=== PATIENT | male | born 1995 | race Caucasian/White ===

== ENCOUNTER → 2018-11-07 | Outpatient (CLI) | payer OTHER ==
--- NOTE | 2018-11-07 17:10 | MR ---
EXAMINATION TYPE: MR knee LT wo con DATE OF EXAM: 11/07/2018 COMPARISON: None HISTORY: Lt knee pain/injury Jul 2018 playing basketball TECHNIQUE: Multiplanar, multisequence imaging of the left knee is performed without IV contrast. FINDINGS: MEDIAL MENISCUS: There is some increased signal within the posterior horn the medial meniscus without clear extension to the articular surface LATERAL MENISCUS: Anterior and posterior horns are intact without tear. CRUCIATE LIGAMENTS: Anterior cruciate ligament shows some increased signal along its substance which could be due to strain or partial tear, posterior cruciate ligament is intact COLLATERAL LIGAMENTS: The medial collateral ligament and lateral collateral ligament complex are inta ct and some increased signal at the popliteus origin could be due to some tendinosis. EXTENSOR MECHANISM: The patellar tendon shows abnormal thickening and increased signal near its inser tion suggesting partial tear, some local fluid signal is present, to a lesser extent at the origin th ere is also some abnormal increased signal posteriorly as well as thickening suggestive of small tear . Some redundancy of the synovium is noted at the insertion of the quadriceps tendon EFFUSION: Small joint effusion POPLITEAL CYST: No popliteal/monk cyst. TRICOMPARTMENT SPACES: Maintained CARTILAGE: Intact BONE MARROW SIGNAL: There is some reactive marrow signal change at the tibial tuberosity. OTHER: No additional significant abnormality is appreciated. IMPRESSION: Partial tear at the insertion of the patellar tendon. Possible tendinosis popliteus tendon, strain or partial tear of the anterior cruciate ligament.
== END ==
LOC: RADMRIMAIN 08:04
PROVIDERS: ATTEND Family Medicine
DX: S76.112A Strain of left quadriceps muscle, fascia and tendon, initial encounter (principal)

== ENCOUNTER 2020-09-09 11:19 | Emergency (ER) | payer OTHER ==
[2020-09-09 11:24] VITALS: BP 146/92; PULSE 72; RESP 18; TEMP 97
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
== END 2020-09-09 13:51 | disposition home or self-care (01) ==
LOC: EC 11:19
DX: F32.9 Major depressive disorder, single episode, unspecified (principal)
CPT/HCPCS: 82075; 99285